=== PATIENT | female | born 1980 | race Two or more races ===

== ENCOUNTER 2016-12-25 19:01 | Outpatient (CLI) | payer MEDICAID ==
[2016-12-25 19:27] VITALS: BMI 24.4
== END 2016-12-25 20:10 | disposition home or self-care (01) ==
LOC: FBCOUT 19:01 → FBC 19:01 → FBCOUT 20:10
PROVIDERS: ATTEND Family Medicine
DX: O47.1 False labor at or after 37 completed weeks of gestation (principal); Z3A.39 39 weeks gestation of pregnancy
CPT/HCPCS: 59025; G0463

== ENCOUNTER 2016-12-26 12:26 | Inpatient (IN) | payer MEDICAID ==
[2016-12-26] MEDS ORDERED: OXYTOCIN 10 UNITS/ML VIAL ONE (12:39)
[2016-12-26] MEDS ORDERED: LIDOCAINE 1% (PRES FREE) 30 ML VIAL ONE (12:40)
[2016-12-26] MEDS ORDERED: LIDOCAINE Viscous 2% 15 ML UDCUP ONE (12:40)
[2016-12-26] MEDS ORDERED: MINERAL OIL 25 ML BOT ONE (12:40)
[2016-12-26] MEDS ORDERED: PUMP TUBING ONE (12:40)
[2016-12-26] MEDS ORDERED: OXYTOCIN IN NS 500 ML IV ONE (12:41)
[2016-12-26] MEDS ORDERED: LIDOCAINE 1% (PRES FREE) 30 ML VIAL IF ONE (13:14)
[2016-12-26] MEDS ORDERED: OXYTOCIN 10 UNITS/ML VIAL IM ONE ×2 (13:14→13:28)
[2016-12-26] MEDS ORDERED: SENNOSIDES 8.6 MG TABLET PO PRN (13:41)
[2016-12-26] MEDS ORDERED: DOCUSATE SODIUM 100 MG CAPSULE PO PRN (13:41)
[2016-12-26] MEDS ORDERED: BENZOCAINE/MENTHOL 60 APPLIC/BOT TP PRN (13:41)
[2016-12-26] MEDS ORDERED: HYDROCODONE/ACETAMINOPHEN 5/325MG TABLET PO PRN (13:41)
[2016-12-26] MEDS ORDERED: LANOLIN 50 APPLIC/7G TUBE TP PRN (13:41)
--- NOTE | 2016-12-26 14:12 | PDOC36 ---
Provider Note Subject: cc: Admission H&P HPI: 36 y.o. year old CARO 12/29/2016, by Last Menstrual Period at 39w4d who presents in active labor. REVIEW OF SYSTEMS GENERAL: No fever or headache EYES: No double or blurry vision. CARDIOVASCULAR: No chest pain. RESPIRATORY: No severe shortness of breath or cough. GASTROINTESTINAL: No nausea or vomiting or right upper quadrant pain. PSYCHIATRIC: No anxiety or depression. PROBLEMS Patient Active Problem List Diagnosis Date Noted 06/11/2016 OB HISTORY #: 1, Date: 07/03/15, Sex: Female, Weight: 3.65 kg (8 lb 0.8 oz), GA: 40w3d, Delivery: Vaginal, Spontaneous Delivery, Apgar1: 9, Apgar5: 9, Living: Yes, Comments: None #: 2, Current Dating Summary Working CARO: 12/29/16 set by Leticia Carney RN on 06/03/16 based on Last Menstrual Period on 03/24/16 Based On CARO GA Dif Comments GA Cyc Lut BC Entered By Date Last Menstrual Period on 03/24/16 (Within Days) 12/29/16 Working [facility] , pt and partner are happy. Leticia Carney RN 06/03/16 Ultrasound on 06/11/16 01/01/17 -3d Dating c/w LMP. Cline IUP. Cardiac and activity observed. Nl appearing uterus and nl fluid. 10w6d Josefina Waite MD 06/15/16 Ultrasound on 08/16/16 12/29/16 [facility] Scan at [facility]. c/w LMP. Normal fluid and survey. Post grade 1 placenta no previa. Female sex. 20w5d Mckenzie Callejas PA-C 08/27/16 PSH No past surgical history SOC HX reports that she has never smoked. She does not have any smokeless tobacco history on file. She reports that she does not drink alcohol or use illicit drugs. ALL No Known Allergies MEDICATIONS Current outpatient prescriptions: Vit-Fe Fumarate-FA ( PLUS) 27-1 MG tablet, Plus ( multivitamin, ) Multivitamins with Folic Acid 1 mg, oral tablet. 1 tablet Q DAY #100, 0 Refills. AUREA MARR., Disp: , Rfl: PHYSICAL EXAMINATION VITAL SIGNS: afebrile, wnl Estimated body mass index is 27.17 kg/(m^2) as calculated from the following: Height as of 12/19/16: 1.545 m (5' 0.83"). Weight as of 12/19/16: 64.864 kg (143 lb). Total weight gain is 10.433 kg (23 lb) FHT: 140's baseline Kirkpatrick: q2 SVE: complete GENERAL: No distress GASTROINTESTINAL: Gravid no fundal tenderness LABS & STUDIES O+ Antibody- Rubella Immune Hep B- HIV- GC/Chlamydia- Trep- Hgb 11.3 GBS neg ASSESSMENT 36 y.o. year old CARO 12/29/2016, by Last Menstrual Period at 39w4d presented in advanced dilation and delivered via without complications. PLAN Patient delivered via shortly after admission GBS neg RH+ FWB cat 1
--- NOTE | 2016-12-26 14:14 | PCMDEL ---
Delivery Note - Labor 1st stage (hr/min):: 2 hours 2nd stage (hr/min):: 12 min 3rd stage (hr/min):: 5 min Total (hr/min):: 2 hours Pushed (hr/min):: 12 min - Delivery Delivery (Date): 12/26/16 Delivery (Time): 13:04 Infant Gender: Female Position: OA Umbilical Cord: 3 Vessel Delayed Cord Clamping:: < 1-2 min 1 Minute Total: 9 5 Minute Total: 9 EBL:: 500 Perineum:: 2nd deg perineal midline lac repaired in running fashion with 3-0 vicryl. Comments:: Presented with advance dilation and complete. Pushed effectively to deliver via without complciations. IM pit administered and fundal massage for active third stage. Vigorous . Delayed cord clamping x 90 sec.
[2016-12-26] MEDS ORDERED: OXYTOCIN IN NS 334 ML IV PRN (16:19)
[2016-12-26 17:14] VITALS: BMI 26.0
[2016-12-26] MEDS ORDERED: IV START KIT ONE (17:19)
[2016-12-26] MEDS: IBUPROFEN 800 MG TABLET PO PRN (19:54)
[2016-12-27] MEDS: IBUPROFEN 800 MG TABLET PO PRN ×2 (01:49→15:23)
[2016-12-27 06:44] LABS: HEMATOCRIT 28.5 % (37.0-47.0)
--- NOTE | 2016-12-27 09:44 | PDOC44 ---
- Subjective Day: 1 doing well. breast feeding well, no concerns Reports Pain Tolerable, Reports , Reports Lochia Light, Reports Tolerating Regular Diet - Objective Temp Pulse Resp BP Pulse Ox 97.8 F 57 16 108/70 12/27/16 07:29 12/27/16 07:29 12/27/16 07:29 12/27/16 07:29 Lab Results 12/27/16 06:10 Hgb 10.0 L Hct 28.5 L Current Medications Generic Name Dose Route Start Last Admin Trade Name Freq PRN Reason Stop Dose Admin Acetaminophen/Hydrocodone Bitart 1 - 2 tab 12/26/16 13:41 Wilmot 5/325 PO Q4H PRN Pain (Moderate) Benzocaine/Menthol 1 applic 12/26/16 13:41 12/26/16 19:54 Dermoplast TP 1 bot PRN PRN Administration Patient Comfort Docusate Sodium 100 mg 12/26/16 13:41 Colace PO DAILY PRN Comfort Emollient Ointment 1 applic 12/26/16 13:41 [id number] TP PRN PRN sore nipples OXYTOCIN IN NS 334 mls @ 334 mls/hr 12/26/16 16:19 12/26/16 13:33 Oxytocin-Ns 30 Unit/500 Ml IV 334 mls/hr X1 PRN Administration Induction Ibuprofen 800 mg 12/26/16 13:41 12/27/16 01:49 Motrin PO 800 mg Q6H PRN Administration Pain (Mild) Senna 17.2 mg 12/26/16 13:41 Senokot PO BEDTIME PRN Comfort Sodium Chloride 10 ml 12/26/16 17:00 12/27/16 01:49 Normal Saline 10ml Flush IV 10 ml Q8HR DERICK Administration Sodium Chloride 10 ml 12/26/16 13:41 12/26/16 14:43 Normal Saline 10ml Flush IV 10 ml PRN PRN Administration IV Flush - Physical Exam General: Afebrile Psych/Mental Status: Mood/Affect Appropriate Neurological: Alert HEENT: Atraumatic Lungs: Clear to Auscultation Bilaterally Cardiovascular: Regular Rate and Rhythm Breast: Soft Fundus: Firm, At Umbilicus Abdomen: Normal Bowel Sounds Genitourinary: Normal Female Genitalia Lochia: Light Rectal Exam: Deferred Extremities: Other (nt, no edema) Skin: Normal Color - Problems:Assessment/Plan (1) Vaginal delivery Status: AcuteAssessment/Plan: PPD 1, doing well, normal exam, routine care. support Disposition: Anticipate DC Home Tomorrow
[2016-12-28] MEDS: IBUPROFEN 800 MG TABLET PO PRN ×2 (01:49→07:37)
[2016-12-28 08:51] VITALS: BP 102/68
--- NOTE | 2016-12-28 10:18 | PDOC39B ---
Hospital Course: ADMIT DATE: 12/26/16 DISCHARGE DATE: 12/28/16 ADMISSION DIAGNOSES: Active labor Advanced dilation IUP at 39 4/7 weeks PROCEDURES: HISTORY OF PRESENT ILLNESS: 36 year old G2 T1 L1 at 39 weeks 4 days presenting in active labor. HOSPITAL COURSE: The patient presented with advanced dilation. Delivered via without complications. Her post recovery was unremarkable. By day of discharge the patient is ambulating, eating, voiding, and passing flatus without difficulty. Pain is controlled and lochia is appropriate. She is breast feedign well. Good maternal bonding. - Physical Exam Vital Signs: Temp Pulse Resp BP Pulse Ox 97.8 F 57 16 102/68 12/28/16 07:30 12/28/16 07:30 12/28/16 07:30 12/28/16 07:30 General: Afebrile, No Acute Distress Neurological: Alert, Oriented x 4 Lungs: Clear to Auscultation Bilaterally Cardiovascular: Regular Rate and Rhythm Fundus: Firm, Midline Extremities: Full ROM, No Edema Skin: Normal Color, Warm, Dry, Intact, No Rash - Discharge Diagnosis (1) Acute blood loss anemia Status: AcuteAssessment/Plan: Post bleeding. Send home with iron supplements. (2) Vaginal delivery Status: AcuteAssessment/Plan: PPD 2, doing well, normal exam, routine care. support - Discharge Plan Condition: Good Disposition: Home Prescriptions: Docusate Sodium [COLACE 100 MG CAPSULE (SHF)] 100 mg PO DAILY PRN #60 PRN Reason: Comfort Ibuprofen [IBUPROFEN 800 MG TABLET (SHF)] 800 mg PO Q6H PRN #60 PRN Reason: Pain (Mild) FERROUS SULFATE (65 Fe) [IRON FERROUS SULFATE 325 MG TABLET (SHF)] 325 mg PO BID #60 tab Lanolin [LANOLIN 7 G TUBE (SHF)] 1 applic TP PRN PRN #10 PRN Reason: Sore Nipples Follow-Up: Mckenzie Callejas PA-C [Physician Front Desk Coordinator] - In 6 weeks
== END 2016-12-28 10:53 | disposition home or self-care (01) | DRG 775 ==
LOC: FBCOUT 12:26 → FBC 12:27 → FBCOUT 12:42 → FBC 12:43
PROVIDERS: ADMIT Family Medicine; ATTEND Family Medicine
PROC: 10E0XZZ Delivery of Products of Conception, External Approach (ICD-10-PCS; principal; 2016-12-26)
PROC: 0KQM0ZZ Repair Perineum Muscle, Open Approach (ICD-10-PCS; 2016-12-26)
DX: O70.1 Second degree perineal laceration during delivery (principal); Z37.0 Single live birth; Z3A.39 39 weeks gestation of pregnancy